=== PATIENT | male | born 1950 | race Caucasian/White ===

== ENCOUNTER 2024-01-30 20:28 | Emergency (ER) | payer BC, MEDICAID ==
[~2024-01-30] VITALS: Ht 182.9 cm; Wt 80.0 kg
[2024-01-30 20:35] VITALS: O2SAT 97
[2024-01-30 21:41] LABS: BASOPHILS % 0.6 % (0.0-2.0); DIFFERENTIAL COMMENT 0; EOSINOPHILS % 3.6 % (0.0-5.0); HEMATOCRIT. 40.2 % (42.0-52.0); HEMOGLOBIN. 13.3 g/dL (14.0-18.0); LYMPHOCYTES % 36.6 % (20.0-50.0); MEAN CORPUSCULAR HEMOGLOBIN 33.2 pg (28.0-32.0); MEAN CORPUSCULAR HGB CONC 33.1 g/dL (31.0-37.0); MEAN CORPUSCULAR VOLUME 100.5 fL (80.0-94.0); MONOCYTES % 8.3 % (2.0-8.0); NEUTROPHILS % 50.9 % (40.0-76.0); PLATELET 213 x1000/uL (130-400); RED CELL DISTRIBUTION WIDTH 14.6 % (11.6-14.6); WHITE BLOOD COUNT 4.4 x1000/uL (4.5-11.0)
[2024-01-30 21:45] LABS: CHLORIDE 110 mEq/L (98-107); POTASSIUM 4.4 mEq/L (3.5-5.1); SODIUM 139 mEq/L (136-145)
[2024-01-30] MEDS: ONDANSETRON HCL 4MG/2ML INJ IV NR (21:45)
[2024-01-30 21:46] LABS: CALCIUM 8.6 mg/dL (8.7-10.4); CARBON DIOXIDE 18 mEq/L (21-32)
[2024-01-30 21:51] LABS: CREATININE 1.4 mg/dL (0.6-1.3); GLUCOSE 112 mg/dL (70-105)
[2024-01-30 21:52] LABS: TROPONIN I HIGH SENSITIVITY 4 ng/L (3.0-53); UREA NITROGEN BLOOD 19 mg/dL (9-23)
[2024-01-30 21:53] LABS: ALANINE AMINOTRANSFERASE 15 IU/L (10-49); ALBUMIN 4.3 g/dL (3.2-4.8); ASPARTATE AMINOTRANSFERASE 22 IU/L (<34)
[2024-01-30 21:54] LABS: BILIRUBIN TOTAL 0.2 mg/dL (0.1-1.0); PROTEIN TOTAL 6.9 g/dL (6.0-8.3)
[2024-01-30 23:00] VITALS: TEMP 98.5
[2024-01-31 00:42] LABS: INR 0.9; PROTHROMBIN TIME 10.1 sec (9.6-11.0)
[2024-01-31] MEDS ORDERED: SODIUM CHLORIDE 0.9% 1,000 ML IV NR (01:45)
[2024-01-31 02:47] LABS: POTASSIUM 4.2 mEq/L (3.5-5.1)
[2024-01-31 02:48] LABS: CALCIUM 8.9 mg/dL (8.7-10.4)
[2024-01-31 02:53] LABS: CREATININE 1.2 mg/dL (0.6-1.3)
[2024-01-31 02:55] LABS: TROPONIN I HIGH SENSITIVITY 4 ng/L (3.0-53)
[2024-01-31 04:15] VITALS: BP 165/80; PULSE 51; RESP 12
== END 2024-01-31 04:22 | disposition home or self-care (01) ==
LOC: ER 20:28
DX: R11.2 Nausea with vomiting, unspecified (principal); F10.129 Alcohol abuse with intoxication, unspecified; F12.10 Cannabis abuse, uncomplicated; R41.0 Disorientation, unspecified; Y90.9 Presence of alcohol in blood, level not specified
CPT/HCPCS: 99285; 96374; 70450; 71045; 80053; 83690; 85025; 85610; 84484 ×2; 36415 ×2; 93005; 80048; J2405